=== PATIENT | male | born 1940 | race Caucasian/White ===

== ENCOUNTER → 2016-10-25 | Outpatient (CLI) | payer MEDICARE, BC ==
[~2016-10-25] MED LIST: AMLODIPINE5 MG PO; AZITHROMYCIN250 MG PO; Accuneb 0.1.25 MG/3 INH; BACTRIM DS 8001 TA1 PO; BEE POLLEN500 M2 PO; CHLORASEPTIC SP20 M1 T; LEVAQUIN750 MG PO; OMEPRAZOLE20 M2 PO; PREDNISONE10 MG PO; PRILOSEC20 MG PO; PROTONIX TR40 MG PO; SPIRIVA18 MCG PO; SYMBICORT1 AE1 INH; TRIAMCINOLONE AC0.1% T
== END ==
LOC: LAB 10-24 11:38
DX: R89.9 Unspecified abnormal finding in specimens from other organs, systems and tissues (principal)